=== PATIENT | male | born 1965 | race Caucasian/White ===

== ENCOUNTER 2016-11-19 15:02 | Emergency (ER) | payer BC | END 2016-11-19 17:15 | disposition left against medical advice (07) | LOC: UCCORT 15:02 | DX: Z53.21 Procedure and treatment not carried out due to patient leaving prior to being seen by health care provider (principal) ==

== ENCOUNTER 2017-07-23 14:47 | Emergency (ER) | payer BC ==
[2017-07-23 15:22] VITALS: BP 129/84
--- NOTE | 2017-07-23 15:58 | UC ---
Dental HPI - HPI Summary HPI Summary: Right lower molar painful, gum swollen here for antibiodics has a dental appointment on July - History of Current Complaint Chief Complaint: UCDentalProblem Stated Complaint: DENTAL COMPLAINT Time Seen by Provider: 07/23/17 15:54 Hx Obtained From: Patient Onset/Duration: Gradual Onset, Worse Since - past day Severity: Moderate Aggravating Factor(s): Heat, Cold, Chewing Alleviating Factor(s): Nothing Related History: Previous Dental Care on Same Tooth, Swelling - Allergies/Home Medications Allergies/Adverse Reactions: Allergies Allergy/AdvReac Type Severity Reaction Status Date / Time No Known Allergies Allergy Verified 07/23/17 15:21 PMH/Surg Hx/FS Hx/Imm Hx Previously Healthy: No Cardiovascular History: Hypertension - Surgical History Surgical History: None - Family History Known Family History: Negative: Respiratory Disease - Social History Occupation: Employed Full-time Lives: With Family Alcohol Use: Rare Substance Use Type: None Smoking Status (MU): Never Smoked Tobacco - Immunization History Most Recent Tetanus Shot: Unknown Review of Systems Constitutional: Negative Skin: Negative Eyes: Negative ENT: Dental Pain Respiratory: Negative Cardiovascular: Negative Gastrointestinal: Negative Genitourinary: Negative Motor: Negative Neurovascular: Negative Musculoskeletal: Negative Neurological: Negative Psychological: Negative Is Patient Immunocompromised?: No All Other Systems Reviewed And Are Negative: Yes Physical Exam Triage Information Reviewed: Yes Appearance: Well-Appearing, No Pain Distress, Well-Nourished Vital Signs: Initial Vital Signs Temp 98.7 F 07/23/17 15:18 Pulse 69 07/23/17 15:18 Resp 17 07/23/17 15:18 BP 129/84 07/23/17 15:18 Pulse Ox 99 07/23/17 15:18 Vital Signs Reviewed: Yes Eye Exam: Normal Eyes: Positive: Conjunctiva Clear ENT Exam: Normal ENT: Positive: Normal ENT inspection, Hearing grossly normal, Pharynx normal, TMs normal. Negative: Nasal congestion, Nasal drainage, Trismus, Muffled/ hoarse voice Dental Exam: Other Dental: Positive: Percussion Tenderness @ - right lower molar, Abscess @ Neck exam: Normal Neck: Positive: Supple, Nontender, No Lymphadenopathy Respiratory Exam: Normal Respiratory: Positive: Chest non-tender, No respiratory distress Cardiovascular Exam: Normal Cardiovascular: Positive: RRR, Pulses Normal, Brisk Capillary Refill Musculoskeletal Exam: Normal Musculoskeletal: Positive: Strength Intact, ROM Intact, No Edema Neurological Exam: Normal Neurological: Positive: Alert, Muscle Tone Normal Psychological Exam: Normal Skin Exam: Normal Dental Complaint Course/Dx - Course Course Of Treatment: amoxicillin, anbesol, tylenol follow with dentist as planned - Differential Dx/Diagnosis Differential Diagnosis/Dx: Dental Abscess Provider Diagnoses: right lower dental abscess Discharge - Discharge Plan Condition: Stable Disposition: HOME Prescriptions: Amoxicillin PO (*) [Amoxicillin 500 MG CAP*] 500 mg PO TID #30 cap Patient Education Materials: Dental Abscess (ED), Toothache (ED) Referrals: Miguel Angel Crenshaw MD [Primary Care Provider] - If Needed Additional Instructions: Follow with the dentist this week as planned
== END 2017-07-23 16:04 | disposition home or self-care (01) ==
LOC: UCCORT 14:47
DX: K08.9 Disorder of teeth and supporting structures, unspecified (principal)
CPT/HCPCS: 99212; G0463

== ENCOUNTER 2017-12-30 08:59 | Emergency (ER) | payer BC ==
[2017-12-30 09:14] VITALS: BP 124/73
--- NOTE | 2017-12-30 09:26 | UC ---
Respiratory Complaint HPI - HPI Summary HPI Summary: cough worsening over the past week fevers on off. - History of Current Complaint Chief Complaint: UCRespiratory Stated Complaint: COUGH Time Seen by Provider: 12/30/17 09:05 Hx Obtained From: Patient Onset/Duration: Sudden Onset, Lasting Weeks - 1, Still Present Timing: Constant Severity Initially: Mild Severity Currently: Moderate Pain Intensity: 5 Pain Scale Used: 0-10 Numeric Character: Cough: Nonproductive Aggravating Factors: Recumbent Position Alleviating Factors: Nothing Associated Signs And Symptoms: Positive: Dyspnea, Fever, Pleuritic Chest Pain - Allergies/Home Medications Allergies/Adverse Reactions: Allergies Allergy/AdvReac Type Severity Reaction Status Date / Time No Known Allergies Allergy Verified 12/30/17 09:11 PMH/Surg Hx/FS Hx/Imm Hx Previously Healthy: No Cardiovascular History: Hypertension - Surgical History Surgical History: None - Family History Known Family History: Negative: Respiratory Disease - Social History Occupation: Employed Full-time Lives: With Family Alcohol Use: Occasionally Substance Use Type: None Smoking Status (MU): Never Smoked Tobacco - Immunization History Most Recent Tetanus Shot: Unknown Review of Systems Constitutional: Fever, Chills Skin: Negative Eyes: Negative ENT: Negative Respiratory: Cough Cardiovascular: Negative Gastrointestinal: Negative Genitourinary: Negative Motor: Negative Neurovascular: Negative Musculoskeletal: Negative Neurological: Negative Psychological: Negative Is Patient Immunocompromised?: No All Other Systems Reviewed And Are Negative: Yes Physical Exam Triage Information Reviewed: Yes Appearance: No Pain Distress, Well-Nourished, Ill-Appearing - mild Vital Signs: Initial Vital Signs Temp 98.2 F 12/30/17 09:09 Pulse 68 12/30/17 09:09 Resp 18 12/30/17 09:09 BP 124/73 12/30/17 09:09 Pulse Ox 98 12/30/17 09:09 Vital Signs Reviewed: Yes Eye Exam: Normal Eyes: Positive: Conjunctiva Clear ENT Exam: Normal ENT: Positive: Normal ENT inspection, Hearing grossly normal, Pharynx normal, TMs normal. Negative: Nasal congestion, Tonsillar swelling, Trismus, Muffled voice, Hoarse voice, Dental tenderness Dental Exam: Normal Neck exam: Normal Neck: Positive: Supple, Nontender, No Lymphadenopathy Respiratory Exam: Normal Respiratory: Positive: Chest non-tender, Lungs clear, Normal breath sounds, No respiratory distress, No accessory muscle use Cardiovascular Exam: Normal Cardiovascular: Positive: RRR, No Murmur, Pulses Normal, Brisk Capillary Refill Musculoskeletal Exam: Normal Musculoskeletal: Positive: Strength Intact, ROM Intact, No Edema Neurological Exam: Normal Neurological: Positive: Alert, Muscle Tone Normal Psychological Exam: Normal Skin Exam: Normal UC Diagnostic Evaluation - Laboratory O2 Sat by Pulse Oximetry: 98 - Radiology Xray Interpretation: No Acute Changes Radiology Interpretation Completed By: ED Physician Respiratory Course/Dx - Course Course Of Treatment: tessalon, robitussin and codiene increase fluids, follow with pcp prn - Differential Dx/Diagnosis Provider Diagnoses: Acute Bronchitis Cough Discharge - Discharge Plan Condition: Stable Disposition: HOME Prescriptions: Benzonatate CAP* [Tessalon 100 MG CAP*] 100 - 200 mg PO TID PRN #40 cap PRN Reason: Cough guaiFENesin/CODIEN 100MG-10MG* [Robitussin AC 100Mg-10Mg*] 5 - 10 ml PO Q4H PRN #120 udc MDD 40 PRN Reason: cough Patient Education Materials: Acute Cough (ED), Cold Symptoms (ED) Referrals: [facility] [Outside] - If Needed
--- NOTE | 2017-12-30 09:52 | RAD ---
INDICATION: 7 days of cough and fever COMPARISON: None TECHNIQUE: PA and lateral views of the chest were obtained. FINDINGS: The heart and mediastinum are normal in size and contour. The lungs are grossly clear. There is no evidence of large pleural effusion. Visualized bones are normal for the patient's age. There is no radiographic evidence of free air beneath the diaphragm IMPRESSION: No radiographic evidence of acute cardiopulmonary disease.
== END 2017-12-30 09:58 | disposition home or self-care (01) ==
LOC: UCCORT 08:59
DX: J20.9 Acute bronchitis, unspecified (principal)
CPT/HCPCS: 71046; 99212; G0463

== ENCOUNTER 2018-08-17 17:33 | Emergency (ER) | payer BC ==
--- OUTSIDE RECORDS SUMMARY | 2018-08-17 19:19 | XMS REPORT ---
:1965 External Reference #:[id number] Author Organization [facility] 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 Onset: 12/29/2016 Edema Elkin Hernández DO Active Onset: 12/29/2016 Thrombocytopenic disorder Elkin Hernández DO Active Family History Date Family Member(s) Problem(s) Comments Father due to Complication From Surgery () Mother 71 Siblings 3 Social History Type Date Description Comments Marital Status ETOH Use Rarely consumes alcohol Smoking Patient denies history of smoking Daily Caffeine Consumes on average 2 cups of regular coffee per day Allergies, Adverse Reactions, Alerts Date Description Reaction Status Severity Comments 12/29/2016 NKDA active Medications Medication Date Status Form Strength Qnty SIG Indications Ordering Provider Furosemide 01/03/20 Active Tablets 20mg 60tabs 1 by R60.9 Araceli Hernández mouth DO Elkin twice a day Losartan 00/00 Active Tablets 40mg Once A GiffordElan Potassium 00 Day No Active 12/30/19 Hx Edgar Medications 17 - DO Elkin 12/30/19 17 Furosemide 12/30/19 Hx Tablets 20mg 30tabs 1 by R60.9 Cherelle Hernández - mouth ElkinDO 02/01/20 twice a 18 day Medications Administered in Office Medication Date Status Form Strength Qnty SIG Indications Ordering Provider Bone Marrow Administered Injection Migue Hernández ElkinDO W/Bone Marrow BX Through Same Incision Vital Signs Date Vital Result Comment 08/03/2018 BP Systolic 145 mmHg BP Diastolic 89 mmHg Body Temperature 97.9 F Heart Rate 18 /min Respiratory Rate 75 /min Weight 249.00 lb O2 % BldC Oximetry 97 % Pain Level 0 02/01/2018 Weight 246.00 lb 07/11/2017 BP Systolic 109 mmHg BP Diastolic 66 mmHg Body Temperature 98.5 F Heart Rate 69 /min Weight 239.00 lb O2 % BldC Oximetry 97 % 05/26/2017 BP Systolic 118 mmHg BP Diastolic 60 mmHg Body Temperature 97.5 F Heart Rate 72 /min Weight 233.00 lb O2 % BldC Oximetry 97 % 03/14/2017 BP Systolic 118 mmHg BP Diastolic 76 mmHg Body Temperature 98.1 F Heart Rate 65 /min Weight 234.25 lb O2 % BldC Oximetry 96 % 01/09/2017 BP Systolic 124 mmHg BP Diastolic 75 mmHg Body Temperature 97.8 F Heart Rate 66 /min Weight 237.38 lb O2 % BldC Oximetry 98 % 12/29/2016 BP Systolic 130 mmHg BP Diastolic 78 mmHg Body Temperature 97.7 F Heart Rate 64 /min Respiratory Rate 16 /min Height 69.1 inches 5'9.10" Weight 232.50 lb BMI (Body Mass Index) 34.2 kg/m2 BSA (Body Surface Area) 2.20 m2 [place] body weight in kilograms 73 O2 % BldC Oximetry 98 % Results Test Date Test Result H/L Range Note Laboratory test finding 08/03/2018 LDH <pending> Platelet Count <pending> CBS W/Automated Diff 01/02/2018 White Blood Count 9.2 K/uL 3.4-10.5 1 Red Blood Count 4.52 M/uL 4.20-5.80 1 Hemoglobin 13.8 gm/dL 12.8-17.0 1 Hematocrit 40.6 % 38.0-48.0 1 Mean Cell Volume 89.8 fl 80.0-96.0 1 Mean Corpuscular HGB 30.5 pg 27.0-33.0 1 Mean Corpuscular HGB Conc 34.0 g/dL 31.7-36.0 1 Platelet Count 128 K/uL Low 155-360 1 Red Cell Distri Width SD 44.6 fl 36-51 1 Red Cell Distri Width %CV 14.1 % 11.6-15.8 1 Mean Platelet Volume 13.0 fL High 6.6-10.6 1 Neut% 66.4 % 33.0-73.0 1 Lymph % 22.9 % 20.0-42.0 1 [place] % 8.5 % 0.0-10.0 1 Eo% 1.9 % 0.0-6.6 1 Bas% 0.3 % 0.0-1.1 1 Neut# 6.10 K/uL 1.8-7.0 1 Lymph # 2.10 K/uL 1.0-4.0 1 [place] # 0.78 K/uL 0.0-0.8 1 Eos # 0.17 K/uL 0.0-0.5 1 Baso # 0.03 K/uL 0.0-0.1 1 Comprehensive Metabolic Panel 01/02/2018 Glucose 82 mg/dL 74-106 1 BUN 12 mg/dL 7-18 1 Creatinine 1.0 mg/dL 0.6-1.3 1 Glom Filtration Rate, Estimate >60 mL/min >60 1 If >60 mL/min >60 1, 2 BUN/Creat 12.0 ratio 1 Sodium 140 mmol/L 136-145 1 Potassium 3.6 mmol/L 3.5-5.1 1 Chloride 108 mmol/L High 98-107 1 Carbon Dioxide 27 mmol/L 21-32 1 Anion Gap 5 mEq/L Low 8-16 1 Calcium 8.9 mg/dL 8.5-10.1 1 Total Protein 7.1 g/dL 6.4-8.2 1 Albumin 3.5 g/dL 3.4-5.0 1 Globulin 3.6 g/dL 1.9-4.3 1 Alb/Glob 1.0 ratio 1 Bilirubin,Total 0.3 mg/dL 0.2-1.0 1 Sgot/Ast 26 U/L 15-37 1 SGPT/Alt 33 U/L 12-78 1 Alkaline Phosphatase 68 U/L 45-117 1 Laboratory test finding 01/02/2018 Platelet Count <pending> 1 CBS W/Automated Diff 06/27/2017 White Blood Count 6.8 K/uL 3.4-10.5 3 Red Blood Count 4.60 M/uL 4.20-5.80 3 Hemoglobin 14.2 gm/dL 12.8-17.0 3 Hematocrit 40.8 % 38.0-48.0 3 Mean Cell Volume 88.7 fl 80.0-96.0 3 Mean Corpuscular HGB 30.9 pg 27.0-33.0 3 Mean Corpuscular HGB Conc 34.8 g/dL 31.7-36.0 3 Platelet Count 122 K/uL Low 150-400 3 Red Cell Distri Width SD 44.2 fl 36-51 3 Red Cell Distri Width %CV 14.0 % 11.6-15.8 3 Mean Platelet Volume 12.8 fL High 6.6-10.6 3 Neut% 58.2 % 33.0-73.0 3 Lymph % 26.8 % 20.0-42.0 3 [place] % 10.4 % High 0.0-10.0 3 Eo% 4.0 % 0.0-6.6 3 Bas% 0.6 % 0.0-1.1 3 Neut# 3.93 K/uL 1.8-7.0 3 Lymph # 1.81 K/uL 1.0-4.0 3 [place] # 0.70 K/uL 0.0-0.8 3 Eos # 0.27 K/uL 0.0-0.5 3 Baso # 0.04 K/uL 0.0-0.1 3 Comprehensive Metabolic Panel 06/27/2017 Glucose 103 mg/dL 74-106 3 BUN 15 mg/dL 7-18 3 Creatinine 1.1 mg/dL 0.6-1.3 3 Glom Filtration Rate, Estimate >60 mL/min >60 3 If >60 mL/min >60 3, 4 BUN/Creat 13.6 ratio 3 Sodium 144 mmol/L 136-145 3 Potassium 3.9 mmol/L 3.5-5.1 3 Chloride 111 mmol/L High 98-107 3 Carbon Dioxide 27 mmol/L 21-32 3 Anion Gap 6 mEq/L Low 8-16 3 Calcium 8.3 mg/dL Low 8.5-10.1 3 Total Protein 7.3 g/dL 6.4-8.2 3 Albumin 3.5 g/dL 3.4-5.0 3 Globulin 3.8 g/dL 1.9-4.3 3 Alb/Glob 0.9 ratio 3 Bilirubin,Total 0.5 mg/dL 0.2-1.0 3 Sgot/Ast 20 U/L 15-37 3 SGPT/Alt 34 U/L 12-78 3 Alkaline Phosphatase 71 U/L 45-117 3 [facility] W/Automated Diff 05/22/2017 White Blood Count 5.0 K/uL 3.4-10.5 5 Red Blood Count 4.50 M/uL 4.20-5.80 5 Hemoglobin 14.1 gm/dL 12.8-17.0 5 Hematocrit 40.1 % 38.0-48.0 5 Mean Cell Volume 89.1 fl 80.0-96.0 5 Mean Corpuscular HGB 31.3 pg 27.0-33.0 5 Mean Corpuscular HGB Conc 35.2 g/dL 31.7-36.0 5 Platelet Count 101 K/uL Low 150-400 5 Red Cell Distri Width SD 44.8 fl 36-51 5 Red Cell Distri Width %CV 14.1 % 11.6-15.8 5 Mean Platelet Volume 13.0 fL High 6.6-10.6 5 Neut% 58.7 % 33.0-73.0 5 Lymph % 27.8 % 20.0-42.0 5 [place] % 9.9 % 0.0-10.0 5 Eo% 3.2 % 0.0-6.6 5 Bas% 0.4 % 0.0-1.1 5 Neut# 2.92 K/uL 1.8-7.0 5 Lymph # 1.38 K/uL 1.0-4.0 5 [place] # 0.49 K/uL 0.0-0.8 5 Eos # 0.16 K/uL 0.0-0.5 5 Baso # 0.02 K/uL 0.0-0.1 5 [facility] W/Automated Diff 03/10/2017 White Blood Count 6.0 K/uL 3.4-10.5 5 Red Blood Count 4.71 M/uL 4.20-5.80 5 Hemoglobin 14.4 gm/dL 12.8-17.0 5 Hematocrit 41.5 % 38.0-48.0 5 Mean Cell Volume 88.1 fl 80.0-96.0 5 Mean Corpuscular HGB 30.6 pg 27.0-33.0 5 Mean Corpuscular HGB Conc 34.7 g/dL 31.7-36.0 5 Platelet Count 102 K/uL Low 150-400 5 Red Cell Distri Width SD 44.6 fl 36-51 5 Red Cell Distri Width %CV 14.0 % 11.6-15.8 5 Mean Platelet Volume 13.1 fL High 6.6-10.6 5 Neut% 57.9 % 33.0-73.0 5 Lymph % 29.9 % 20.0-42.0 5 [place] % 9.4 % 0.0-10.0 5 Eo% 2.5 % 0.0-6.6 5 Bas% 0.3 % 0.0-1.1 5 Neut# 3.44 K/uL 1.8-7.0 5 Lymph # 1.78 K/uL 1.0-4.0 5 [place] # 0.56 K/uL 0.0-0.8 5 Eos # 0.15 K/uL 0.0-0.5 5 Baso # 0.02 K/uL 0.0-0.1 5 Comprehensive Metabolic Panel 03/10/2017 Glucose 115 mg/dL High 74-106 5 BUN 15 mg/dL 7-18 5 Creatinine 0.9 mg/dL 0.6-1.3 5 Glom Filtration Rate, Estimate >60 mL/min >60 5 If >60 mL/min >60 5, 6 BUN/Creat 16.6 ratio 5 Sodium 144 mmol/L 136-145 5 Potassium 3.8 mmol/L 3.5-5.1 5 Chloride 110 mmol/L High 98-107 5 Carbon Dioxide 24 mmol/L 21-32 5 Anion Gap 10 mEq/L 8-16 5 Calcium 8.8 mg/dL 8.5-10.1 5 Total Protein 6.9 g/dL 6.4-8.2 5 Albumin 3.4 g/dL 3.4-5.0 5 Globulin 3.5 g/dL 1.9-4.3 5 Alb/Glob 1.0 ratio 5 Bilirubin,Total 0.4 mg/dL 0.2-1.0 5 Sgot/Ast 14 U/L Low 15-37 5, 7 SGPT/Alt 32 U/L 12-78 5 Alkaline Phosphatase 61 U/L 45-117 5 Xray 01/05/2017 Ultrasound, Abdomen Complete <pending> Venous Doppler Lower Extremity Bilateral <pending> Comprehensive Metabolic Panel 12/29/2016 Glucose 76 mg/dL 74-106 5 BUN 11 mg/dL 7-18 5 Creatinine 1.0 mg/dL 0.6-1.3 5 Glom Filtration Rate, Estimate >60 mL/min >60 5 If >60 mL/min >60 5, 8 BUN/Creat 11.0 ratio 5 Sodium 141 mmol/L 136-145 5 Potassium 4.1 mmol/L 3.5-5.1 5 Chloride 107 mmol/L 98-107 5 Carbon Dioxide 28 mmol/L 21-32 5 Anion Gap 6 mEq/L Low 8-16 5 Calcium 8.5 mg/dL 8.5-10.1 5 Total Protein 7.3 g/dL 6.4-8.2 5 Albumin 3.6 g/dL 3.4-5.0 5 Globulin 3.7 g/dL 1.9-4.3 5 Alb/Glob 1.0 ratio 5 Bilirubin,Total 0.6 mg/dL 0.2-1.0 5 Sgot/Ast 32 U/L 15-37 5 SGPT/Alt 37 U/L 12-78 5 Alkaline Phosphatase 67 U/L 45-117 5 Reflex add FT3? N 5 Reflex add FT4? Y 5 Reticulocyte 12/29/2016 Retic % 0.8 % 0.8-2.1 5 Count,Automated Rheumatoid Factor Screen 12/29/2016 Rheumatoid Factor < 10.0 IU/mL 0.0- 15.0 5 Screen Reflex add FT3? N 5 Reflex add FT4? Y 5 TSH Reflex FT4 And/Or FT3 12/29/2016 Thyroid Stim Hormone 0.76 uIU/mL 0.30-4.20 5 Reflex add FT3? N 5 Reflex add FT4? Y 5 Laboratory test 12/29/2016 Anti-Nuclear Negative AU/mL Negative 5, 9 finding Antibodies Direct Gamma Glutamyl 12/29/2016 Gamma Glutamyl 104 U/L High 5-85 5 Transpeptidase Transpeptidase Reflex add FT3? N 5 Reflex add FT4? Y 5 Platelet Antibody,Serum 12/29/2016 Hla Class 1 Antibody Negative Negative 5 IIb/IIIa Antibody Negative Negative 5 Ib/IX Antibody Negative Negative 5 Ia/IIa Antibody Negative Negative 5, 10 CBS W/Automated Diff 12/29/2016 White Blood Count 8.0 K/uL 3.4-10.5 5 Red Blood Count 5.09 M/uL 4.20-5.80 5 Hemoglobin 15.0 gm/dL 12.8-17.0 5 Hematocrit 44.9 % 38.0-48.0 5 Mean Cell Volume 88.2 fl 80.0-96.0 5 Mean Corpuscular HGB 29.5 pg 27.0-33.0 5 Mean Corpuscular HGB Conc 33.4 g/dL 31.7-36.0 5 Platelet Count 138 K/uL Low 150-400 5 Red Cell Distri Width SD 46.7 fl 36-51 5 Red Cell Distri Width %CV 14.8 % 11.6-15.8 5 Mean Platelet Volume 12.9 fL High 6.6-10.6 5 Neut% 61.9 % 33.0-73.0 5 Lymph % 28.5 % 20.0-42.0 5 [place] % 7.2 % 0.0-10.0 5 Eo% 1.9 % 0.0-6.6 5 Bas% 0.5 % 0.0-1.1 5 Neut# 4.97 K/uL 1.8-7.0 5 Lymph # 2.29 K/uL 1.0-4.0 5 [place] # 0.58 K/uL 0.0-0.8 5 Eos # 0.15 K/uL 0.0-0.5 5 Baso # 0.04 K/uL 0.0-0.1 5 Laboratory test finding 12/29/2016 Platelet Count <pending> 5 1 D69.6 2 Note: Persistent reduction for 3 months or more in an eGFR <60 mL/min/1.73 m2 defines CKD. Patients with eGFR values >/=60 mL/min/1.73 m2 may also have CKD if evidence of persistent proteinuria is present. The original MDRD equation for estimated GFR is not valid for patients less than 18 years of age. Additional information may be found at www.kdoqi.org. 3 D69.6 R16.1 4 Note: Persistent reduction for 3 months or more in an eGFR <60 mL/min/1.73 m2 defines CKD. Patients with eGFR values >/=60 mL/min/1.73 m2 may also have CKD if evidence of persistent proteinuria is present. The original MDRD equation for estimated GFR is not valid for patients less than 18 years of age. Additional information may be found at www.kdoqi.org. 5 D69.6 6 Note: Persistent reduction for 3 months or more in an eGFR <60 mL/min/1.73 m2 defines CKD. Patients with eGFR values >/=60 mL/min/1.73 m2 may also have CKD if evidence of persistent proteinuria is present. The original MDRD equation for estimated GFR is not valid for patients less than 18 years of age. Additional information may be found at www.kdoqi.org. 7 Values below the stated reference ranges of AST and ALT can be seen in normal populations. Clinical correlation is suggested. 8 Note: Persistent reduction for 3 months or more in an eGFR <60 mL/min/1.73 m2 defines CKD. Patients with eGFR values >/=60 mL/min/1.73 m2 may also have CKD if evidence of persistent proteinuria is present. The original MDRD equation for estimated GFR is not valid for patients less than 18 years of age. Additional information may be found at www.kdoqi.org. 9 Performed at: RN - [facility] [address] [id number] [employer] Feeder: Sharifa Sommers MD, Phone: [phone] Performed at: BN - [facility] [address] [id number] [employer]: Oscar Olivo MD, Phone: [phone] Procedures Date CPT Code Description Status 06/27/2017 73174 Biopsy, Needle/Trocar Completed Encounters Type Date Location Provider CPT E/M Dx Office Visit 02/01/2018 9:45a Oncology Office Elkin Hernán[place] [address] D69.6 R60.9 Office Visit 01/02/2018 3:30p Oncology Office Elkin Hernán[place] [address] D69.6 R16.1 R60.9 Office Visit 07/11/2017 3:30p Oncology Office Elkin Hernán[place] [address] D69.6 R16.1 R60.9 Office Visit 05/26/2017 1:30p [place]cology [place]án[place] [address] D69.6 R60.9 R16.1 Office Visit 03/14/2017 9:30a [place]cology [place]án[place] [address] D69.6 R60.9 R16.1 Office Visit 01/09/2017 9:30a [place]cology [place] [address] D69.6 R60.9 K76.89 R16.1 Office Visit 12/29/2016 1:00p [place]cology [place]án[place] [address] D69.6 R60.9 Plan of Care 08/03/2018 - Elkin Hernández, DOD69.6 Thrombocytopenia, unspecifiedFollow up: Labs today follow-up 6 [id number] Splenomegaly, not elsewhere [id number] Edema, unspecified
[2018-08-17 19:24] VITALS: BP 128/75
--- NOTE | 2018-08-17 19:50 | ED ---
Skin Complaint - HPI Summary HPI Summary: 53 yo WM p/w left anterior hip rash, x 3 days, started out blister like and now reddish associated and preceded by skin pain and irritation; has had zoter in the past - History of Current Complaint Chief Complaint: UCSkin Time Seen by Provider: 08/17/18 19:22 Stated Complaint: RASH ON LEFT LEG NEAR HIP Hx Obtained From: Patient Onset/Duration: Started Days Ago Timing: Constant Onset Severity: Moderate Pain Intensity: 0 - Allergy/Home Medications Allergies/Adverse Reactions: Allergies Allergy/AdvReac Type Severity Reaction Status Date / Time No Known Allergies Allergy Verified 08/17/18 19:21 PMH/Surg Hx/FS Hx/Imm Hx Previously Healthy: Yes Cardiovascular History: Reports: Hx Hypertension Infectious Disease History: No Infectious Disease History: Denies: Traveled Outside the [place] in Last 30 Days - Family History Known Family History: Negative: Respiratory Disease - Social History Alcohol Use: Rare Substance Use Type: Reports: None Smoking Status (MU): Never Smoked Tobacco Review of Systems Constitutional: Negative Eyes: Negative ENT: Negative Cardiovascular: Negative Respiratory: Negative Gastrointestinal: Negative Genitourinary: Negative Musculoskeletal: Negative Positive: Rash, Other Neurological: Other Positive: Paresthesia Psychological: Normal All Other Systems Reviewed And Are Negative: Yes Physical Exam - Summary Physical Exam Summary: Vital Signs Reviewed: Yes Appearance: Positive: Well-Appearing Skin: Positive: neuropathic pain and scabbed over erythematous 5x6cm patch of rash on L2 dermatome on left anterior hip Head/Face: Positive: Normal Head/Face Inspection Eyes: Positive: Normal, EOMI, CLARA ENT: Positive: Normal ENT inspection Neck: Positive: Supple Respiratory/Lung Sounds: Positive: Clear to Auscultation Cardiovascular: Positive: Normal, RRR, S1, S2 Abdomen Description: Positive: Nontender, Soft Musculoskeletal: Positive: Normal Neurological: Positive: CN Intact II-XII Psychiatric: Positive: Normal Triage Information Reviewed: Yes Vital Signs On Initial Exam: Initial Vitals Temp Pulse Resp BP Pulse Ox 36.9 C 74 16 128/75 100 08/17/18 19:18 08/17/18 19:18 08/17/18 19:18 08/17/18 19:18 08/17/18 19:18 Diagnostics - Vital Signs Vital Signs Temp Pulse Resp BP Pulse Ox 08/17/18 19:18 36.9 C 74 16 128/75 100 - Laboratory Lab Statement: Any lab studies that have been ordered have been reviewed, and results considered in the medical decision making process. Course/Dx - Course Assessment/Plan: LEft hip rash- Herpes zoster- recurrent, Zovirax ointment and Valtrex PO TID x 7 days - Diagnoses Provider Diagnoses: Zoster Discharge - Sign-Out/Discharge Documenting (check all that apply): Patient Departure All imaging exams completed and their final reports reviewed: No Studies - Discharge Plan Condition: Stable Disposition: HOME Prescriptions: Acyclovir OINT 5%(NF) [Zovirax Oint 5%(NF)] 1 applic TOPICAL .SIX TIMES A DAY 7 Days #1 tube ValACYclovir (*) [Valtrex 1 GM(*)] 1 gm PO TID 7 Days #21 tab Patient Education Materials: Shingles (ED) Additional Instructions: Follow up with PCP if sx persist - Billing Disposition and Condition Condition: STABLE Disposition: Home
== END 2018-08-17 19:49 | disposition home or self-care (01) ==
LOC: UCCORT 17:33
DX: B02.9 Zoster without complications (principal); I10 Essential (primary) hypertension
CPT/HCPCS: 99212; G0463

== ENCOUNTER 2019-05-17 17:06 | Emergency (ER) | payer BC ==
[2019-05-17 18:31] VITALS: BP 144/77
--- NOTE | 2019-05-17 19:21 | UC ---
UC General HPI - HPI Summary HPI Summary: pt is c/o a 3 day hx of extreme weakness and fatigue. he is also c/o pain to the sides of his neck and occasional L low back pain. + "low grade fever". states working 12 hour shifts and sleeping poorly which may explain the fatigue. - History of Current Complaint Chief Complaint: UCGeneralIllness Stated Complaint: FEVER,BACK PAIN,ACHY Time Seen by Provider: 05/17/19 19:00 Hx Obtained From: Patient Timing: Constant Pain Intensity: 6 - Allergy/Home Medications Allergies/Adverse Reactions: Allergies Allergy/AdvReac Type Severity Reaction Status Date / Time No Known Allergies Allergy Verified 05/17/19 18:26 Home Medications: Home Medications Ibuprofen TAB* [Advil TAB*] 400 mg PO Q6H PRN 05/17/19 [History Confirmed ] PMH/Surg Hx/FS Hx/Imm Hx - Additional Past Medical History Additional PMH: JONATHAN, Edema BLE's, Renal disease but not tx indicated, "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 Cardiovascular History: Hypertension - Surgical History Surgical History: None - Family History Known Family History: Negative: Respiratory Disease - Social History Occupation: Employed Full-time Lives: With Family Alcohol Use: Rare Substance Use Type: None Smoking Status (MU): Never Smoked Tobacco - Immunization History Most Recent Tetanus Shot: Unknown Review of Systems All Other Systems Reviewed And Are Negative: Yes Constitutional: Positive: Fever, Fatigue Skin: Negative: Rash Eyes: Negative: Eye Redness ENT: Negative: Sore Throat, Ear Ache, Sinus Congestion Respiratory: Negative: Shortness Of Breath, Cough Cardiovascular: Negative: Palpitations, Chest Pain Gastrointestinal: Negative: Abdominal Pain, Vomiting, Diarrhea, Nausea Genitourinary: Negative: Dysuria Motor: Positive: Weakness Musculoskeletal: Positive: Edema - BLE's-chronic, Other: - sides of neck and occasional l low back ache.. Negative: Arthralgia Neurological: Negative: Headache Physical Exam Triage Information Reviewed: Yes Appearance: Well-Appearing Vital Signs: Initial Vital Signs Temp 100.8 F 05/17/19 18:28 Pulse 75 05/17/19 18:28 Resp 16 05/17/19 18:28 BP 144/77 05/17/19 18:28 Pulse Ox 98 05/17/19 18:28 Vital Signs Reviewed: Yes Eyes: Positive: Conjunctiva Clear ENT: Positive: Pharynx normal, TMs normal. Negative: Nasal congestion, Nasal drainage Neck: Positive: Supple, Nontender, No Lymphadenopathy, Other: - c-spine non tender. Negative: Nuchal Rigidity Respiratory: Positive: Lungs clear, Normal breath sounds, No respiratory distress Cardiovascular: Positive: RRR, No Murmur, Pulses Normal Abdomen Description: Positive: Nontender, No Organomegaly, Soft. Negative: CVA Tenderness (R), CVA Tenderness (L) Bowel Sounds: Positive: Present Musculoskeletal: Positive: ROM Intact, Edema @ - mild pitting mid shins down., Other: - 5/5 strenght, 2+ reflexes and sensation intact x 4. Neurological: Positive: Alert Psychological: Positive: Age Appropriate Behavior Skin Exam: Normal Skin: Negative: Rashes Diagnostics - Laboratory Lab Results: u/a=1+protein and bilirubin. Course/Dx - Course Course Of Treatment: Case d/w dr blancas. will d/c to home with close f/u for recheck. - Differential Dx - Multi-Symptom Differential Diagnoses: Other - non toxic. no sign of bacterial infection. pt advised to avoid NSAIDs unless pcp clears to use then and to take tylenol as needed. - Diagnoses Provider Diagnosis: Weakness, Fatigue, Fever Discharge - Sign-Out/Discharge Documenting (check all that apply): Patient Departure All imaging exams completed and their final reports reviewed: No Studies - Discharge Plan Condition: Stable Disposition: HOME Patient Education Materials: Fever in Adults (ED), Weakness (ED), Fatigue (ED) Referrals: No Primary Care Phys,NOPCP [Primary Care Provider] - Additional Instructions: FOLLOW UP WITH YOUR PRIMARY CARE AT [facility] THE [place] THIS COMING MONDAY FOR A RECHECK. GO TO THE ER FOR ANY WORSENING. TAKE TYLENOL FOR FEVER AND DISCOMFORT. AVOID MOTRIN, ALEVE, IBUPROFEN UNLESS YOUR DOCTOR CLEARS YOU TO TAKE THESE. - Billing Disposition and Condition Condition: STABLE Disposition: Home
== END 2019-05-17 19:55 | disposition home or self-care (01) ==
LOC: UCCORT 17:06
DX: R53.1 Weakness (principal); R53.83 Other fatigue; R50.9 Fever, unspecified
CPT/HCPCS: 81003; 99211; G0463

== ENCOUNTER 2019-08-05 17:38 | Emergency (ER) | payer BC ==
--- NOTE | 2019-08-05 20:17 | UC ---
Back Pain HPI - HPI Summary HPI Summary: 54-year-old male comes in with chief complaint of low back pain. Started about a week ago. He was working out in his garage and he twisted and bent and felt a pop in the back. The pain is in the lower lumbar area. It does not shoot down into his legs. Pain is worse with any twisting turning bending. No difficulty controlling urine or bowels. Has been using ibuprofen and heat packs with very minimal relief. - History of Current Complaint Chief Complaint: UCBackPain Stated Complaint: LOWER BACK PAIN Time Seen by Provider: 08/05/19 20:00 Pain Intensity: 7 - Allergies/Home Medications Allergies/Adverse Reactions: Allergies Allergy/AdvReac Type Severity Reaction Status Date / Time No Known Allergies Allergy Verified 08/05/19 18:02 PMH/Surg Hx/FS Hx/Imm Hx Previously Healthy: Yes Cardiovascular History: Hypertension - Surgical History Surgical History: None - Family History Known Family History: Negative: Respiratory Disease - Social History Alcohol Use: Rare Substance Use Type: None Smoking Status (MU): Never Smoked Tobacco - Immunization History Most Recent Tetanus Shot: Unknown Review of Systems All Other Systems Reviewed And Are Negative: Yes Constitutional: Positive: Negative Skin: Positive: Negative Eyes: Positive: Negative ENT: Positive: Negative Respiratory: Positive: Negative Cardiovascular: Positive: Negative Gastrointestinal: Positive: Negative Genitourinary: Positive: Negative Motor: Positive: Other - SEE HPI Neurovascular: Positive: Negative Musculoskeletal: Positive: Other: - SEE HPI Neurological: Positive: Negative Psychological: Positive: Negative Is Patient Immunocompromised?: No Physical Exam Triage Information Reviewed: Yes Appearance: Well-Appearing, Well-Nourished, Pain Distress - MILD WITH ROM Vital Signs: Initial Vital Signs Temp 99.3 F 08/05/19 17:56 Pulse 68 08/05/19 17:56 Resp 18 08/05/19 17:56 BP 130/61 08/05/19 17:56 Pulse Ox 98 08/05/19 17:56 Vital Signs Reviewed: Yes Eye Exam: Normal Eyes: Positive: Conjunctiva Clear Neck: Positive: Supple Respiratory: Positive: No respiratory distress Musculoskeletal: Positive: Other: - Tender to palpation lower lumbar mid spine and also in the paraspinous muscles. Legs have full range of motion full- strength. Neurological: Positive: Alert Psychological: Positive: Age Appropriate Behavior Skin Exam: Normal Back Pain Course/Dx - Course Course Of Treatment: No neurologic deficits by history or exam. Plan is ibuprofen lidocaine patch and then Flexeril as needed. Follow-up with sports medicine. Discussed that if he get any weakness numbness difficulty controlling urine or bowels needs to get checked again right away. - Differential Dx/Diagnosis Provider Diagnosis: Low back pain Discharge ED - Sign-Out/Discharge Documenting (check all that apply): Patient Departure All imaging exams completed and their final reports reviewed: No Studies - Discharge Plan Condition: Stable Disposition: HOME Prescriptions: Cyclobenzaprine TAB* [Flexeril 10 MG TAB*] 10 mg PO TID PRN #15 tab PRN Reason: Pain - Moderate Patient Education Materials: Acute Low Back Pain (ED), Lower Back Exercises (ED ) Referrals: [facility] [Provider Group] Additional Instructions: FOLLOW UP WITH SPORTS MEDICINE. TRY LIDOCAINE PATCHES IF HELPFUL. GET REEVALUATED SOONER IF NOT IMPROVING OR YOUR CONDITION WORSENS; WEAKNESS, NUMBNESS, DIFFICULTY CONTROLLING BOWEL OR BLADDER OR ANY QUESTIONS OR CONCERNS. - Billing Disposition and Condition Condition: STABLE Disposition: Home
[2019-08-05 20:27] VITALS: BP 132/76
== END 2019-08-05 20:27 | disposition home or self-care (01) ==
LOC: UCCORT 17:38
DX: M54.5 Low back pain (principal); I10 Essential (primary) hypertension
CPT/HCPCS: 99212; G0463

== ENCOUNTER 2019-12-30 09:03 | Emergency (ER) | payer BC ==
[2019-12-30 09:44] VITALS: BP 133/80
--- NOTE | 2019-12-30 11:07 | UC ---
UC General HPI - History of Current Complaint Chief Complaint: UCGeneralIllness Stated Complaint: POSS EXPOSURE Time Seen by Provider: 12/30/19 09:14 Pain Intensity: 0 - Allergy/Home Medications Allergies/Adverse Reactions: Allergies Allergy/AdvReac Type Severity Reaction Status Date / Time No Known Allergies Allergy Verified 12/30/19 09:41 Home Medications: Home Medications Furosemide TAB* [Lasix TAB*] 20 mg PO BID 02/22/17 [History Confirmed 08/05/19] Losartan Potassium [Cozaar] 50 mg PO DAILY 02/22/17 [History Confirmed 08/05/19] PMH/Surg Hx/FS Hx/Imm Hx Cardiovascular History: Hypertension - Surgical History Surgical History: Yes Surgery Procedure, Year, and Place: vasectomy - Family History Known Family History: Positive: Non-Contributory Negative: Respiratory Disease - Social History Occupation: Employed Full-time Alcohol Use: Rare Substance Use Type: None Smoking Status (MU): Never Smoked Tobacco - Immunization History Most Recent Tetanus Shot: Unknown Review of Systems All Other Systems Reviewed And Are Negative: Yes Constitutional: Positive: Negative. Negative: Fever, Chills Skin: Positive: Negative Eyes: Positive: Negative, Drainage ENT: Negative: Sore Throat, Ear Ache, Nasal Discharge, Sinus Congestion, Sinus Pain/Tenderness Respiratory: Positive: Negative Cardiovascular: Positive: Negative Gastrointestinal: Positive: Negative Genitourinary: Positive: Negative Motor: Positive: Negative Musculoskeletal: Positive: Negative Neurological/Mental Status: Positive: Negative Psychological: Positive: Negative Physical Exam - Summary Physical Exam Summary: Vital Signs Reviewed: Yes Appearance: Positive: No Pain Distress Skin: Positive: Warm Head/Face: Positive: Normal Head/Face Inspection Eyes: Positive: Normal ENT: Positive: Normal ENT inspection Dental: Negative: Cervical Lymphadenopathy Neck: Positive: Supple Respiratory/Lung Sounds: Positive: Clear to Auscultation Cardiovascular: Positive: Normal, RRR, S1, S2 Abdomen Description: Positive: Nontender Musculoskeletal: Positive: Normal Neurological: Positive: Normal Psychiatric: Positive: Normal Triage Information Reviewed: Yes Vital Signs: Initial Vital Signs Temp 37.0 C 12/30/19 09:42 Pulse 73 12/30/19 09:42 Resp 17 12/30/19 09:42 BP 133/80 12/30/19 09:42 Pulse Ox 98 12/30/19 09:42 Course/Dx - Course Course Of Treatment: pt is has NO exposure hx, NO sx, NO travel, testing for COVID 19 NOT indicated at this time. If sx develop we can re-assess and educated/advised pt to return if sx develop or if exposed. - Diagnoses Provider Diagnosis: Encounter for medical screening examination Discharge ED - Sign-Out/Discharge Documenting (check all that apply): Patient Departure All imaging exams completed and their final reports reviewed: No Studies - Discharge Plan Condition: Stable Disposition: HOME Patient Education Materials: Viral Syndrome (ED) Referrals: No Primary Care Phys,NOPCP [Primary Care Provider] - Additional Instructions: PLEASE RETURN TO CLINIC FOR RE-EVALUATION IF SYMPTOMS OF COUGH, FEVER OR SHORTNESS OF BREATH APPEARS OR BECOME SICK - Billing Disposition and Condition Condition: STABLE Disposition: Home
== END 2019-12-30 10:41 | disposition home or self-care (01) ==
LOC: UCCORT 09:03
DX: Z11.59 Encounter for screening for other viral diseases (principal); I10 Essential (primary) hypertension; Z79.899 Other long term (current) drug therapy
CPT/HCPCS: 99211; G0463